=== PATIENT | female | born 1970 | race African-American/Black ===

== ENCOUNTER 2017-05-06 10:25 | Observation (INO) ==
[2017-05-06] MEDS ORDERED: METOPROLOL TARTRATE 5 MG/5 ML VIAL IV STA ×2 (11:42→15:44)
[2017-05-06] MEDS ORDERED: NITROGLYCERIN 2% OINT 1 INCH/GM PACK TOP STA (11:42)
[2017-05-06] MEDS ORDERED: MORPHINE 2 MG/1 ML SYRINGE IV PRN ×2 (11:42→17:37)
[2017-05-06] MEDS ORDERED: ASPIRIN 325 MG TABLET PO STA (11:42)
[2017-05-06] MEDS ORDERED: ALUM/MAG/SIMETH/LIDO VISC 1:1 30 ML BOTTLE PO STA (11:42)
--- NOTE | 2017-05-06 11:46 | EKG Report ---
Stationary ECG Study [facility] ER Test Date: 05/06/2017 10:36:41 AM Pat Name: SHARRI VALDERRAMA Department: Room: Gender: F Business System Consultant: : 1970 Requested by: Lokesh Wade Order Number: [id number] Reading MD: JAMMIE RAMIRES Intervals [place] Rate: 83 P: 62 [place]: 157 QRS: 60 QRSD: 95 T: 58 QT: 391 QTc: 430 Interpretive Statements SINUS RHYTHM Electronically Signed On 05-06-17 22:22:35 CDT by JAMMIE RAMIRES [email or web address]
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
[2017-05-06 12:23] LABS: Basophils % 0.5 % (0.0-0.8); Eosinophils # 0.3 10*3/uL (0.0-0.87); Eosinophils % 2.9 % (0.00-10.9); Hematocrit 40.1 VOL% (35.7-47.0); Hemoglobin 12.9 GM/DL (12.0-16.0); Immature Granulocytes % 0.6 %; Immature Granulocytes Absolute 0.05 #; Lymphocytes # 1.8 10*3/uL (1.4-4.0); Lymphocytes % 20.5 % (21.3-54.2); Mean Corpuscular HGB Conc 32.2 GM/DL (32-36); Mean Corpuscular Hemoglobin 28 PG (27-34); Mean Corpuscular Volume 85.5 FL (87-102); Mean Platelet Volume 10.4 FL (9.6-12.0); Monocytes # 0.6 10*3/uL (0.11-0.8); Neutrophils % 68.5 % (38.7-73.9); Platelet Count 421 T/CUMM (130-400); Red Blood Count 4.69 MC/CUMM (3.8-5.5); White Blood Count 8.8 T/CUMM (4-12)
[2017-05-06] MEDS ORDERED: ALUM/MAG/SIMETH/LIDO VISC 1:1 30 ML BOTTLE PO ONE (12:24)
[2017-05-06] MEDS ORDERED: NITROGLYCERIN 2% OINT 1 INCH/GM PACK TOP ONE (12:24)
[2017-05-06] MEDS ORDERED: ASPIRIN 325 MG TABLET ONE (12:24)
[2017-05-06] MEDS ORDERED: METOPROLOL TARTRATE 5 MG/5 ML VIAL IV ONE ×2 (12:24→16:27)
[2017-05-06 12:35] LABS: Partial Thromboplastin Time 28.6 SECS (0-40)
[2017-05-06 13:01] LABS: Albumin 3.3 G/DL (3.4-5.0); Bilirubin,Total 0.4 MG/DL (0.2-1.0); Calcium 8.8 MG/DL (8.5-10.1); Osmolality,Calculated 277.4 MOS/KG (273-304)
[2017-05-06] MEDS ORDERED: ONDANSETRON 4 MG/2 ML VIAL ONE ×2 (14:14→16:33)
--- NOTE | 2017-05-06 14:17 | XRay Report ---
History: Chest pain Date: 05/06/2017 Study: Chest x-ray PA lateral Comparison exam: February 23, 2017 chest x-ray There is continued mild cardiomegaly. The mediastinal contours are stable. Stent graft of the aortic arch and descending thoracic aorta is stable in appearance. The pulmonary vasculature is not engorged. There is no layering pleural effusion. The lungs and pleural spaces are generally clear aside from some minimal linear scar or subsegmental atelectasis in the left base. Osseous structures are unchanged. Impression: No definite acute process compared to the previous study PROCEDURE INTERPRETED AT [facility] DEPARTMENT OF RADIOLOGY Final Report Signed by: Dr. Marline Mattson
[2017-05-06] MEDS: ONDANSETRON 4 MG/2 ML VIAL IV PRN ×2 (14:18→16:40)
[2017-05-06 15:45] LABS: Apearance,Urine Slightly Hazy (Clear); Bilirubin,Urine Negative (Negative); Blood, Urine Negative (Negative); Glucose,Urine (UA) Negative (Negative); Ketones,Urine Negative (Negative); Mucus,Urine Occasional /LPF (Occasional); Nitrite,Urine Negative (Negative); Protein,Urine Negative; RBC,Urine 1 /HPF (0-4); Squamous Epithelial Cell,Urine Occasional /HPF (0-10); Urine Color Yellow (Yellow); Urine Specific Gravity 1.046 (1.001-1.035); Urine Urobilinogen < 2.0 EU/DL (0.2-1.0); WBC,Urine 2 /HPF (0-6)
[2017-05-06 15:57] LABS: Barbiturates Screen,Urine Negative (Negative); Benzodiazepines Screen,Urine Negative (Negative); Cannabinoid Screen,Urine Negative (Negative); Opiate Screen,Urine Negative (Negative); Phencyclidine Screen,Urine Negative (Negative)
--- NOTE | 2017-05-06 16:18 | CT Report ---
CT angio aorta complete Indication: Chest pain. History of prior thoracic endograft. CT ANGIOGRAM CHEST, ABDOMEN AND PELVIS DLP: 683 mGy*cm. One or more of the following dose reduction techniques was used: Automated exposure control, adjustment of the mA and/or kV according the patient size, or use of iterative reconstruction techniques. Technique: Axial CT images of the chest, abdomen and pelvis were obtained during the arterial and venous phases of contrast injection. 3-D vascular MIPS reconstructions and multiplanar reformats were evaluated. Omnipaque 350, 100 cc. Comparison: 04/30/2016 Arteriogram: Thoracic aortic stent graft device is in stable position. There is no evidence of endoleak within the excluded portion of the thoracic aneurysm. Ascending thoracic aortic diameter stable at 37 x 51 mm. No new thoracic aortic dissection shown. Left subclavian reposition on the left common carotid artery is again noted. Origin the right clavian artery remains dilated at 26 mm diameter, stable. Progressing inferiorly, dissection at the thoracoabdominal junction is again shown with continued thrombosis of the false lumen. In the abdomen, there is contrast enhancement of both the true and false lumen now present, both which appear to be patent along the entire length of the remaining aorta and into the bilateral iliac arteries. The celiac, superior mesenteric, and bilateral renal arteries are widely patent and originate off the true lumen, except for the left renal artery which appears to be a fenestration site of the true and false lumen. Regardless, no dissection is seen extending into the splanchnic vasculature. Maximum infrarenal abdominal aortic diameter is 38 x 38 mm, unchanged. The dissection extending to the right common iliac artery is unchanged with the right common iliac artery measuring 15 x 26 mm, stable. The left common iliac artery remains dilated as well at 19 mm, stable. Both external iliac arteries are widely patent. Chest: No mediastinal hematoma. Cardiomegaly again shown. Postoperative changes median sternotomy are present. No lymphadenopathy. Lungs are hypoinflated with elevation right hemidiaphragm and bibasilar atelectasis. They're otherwise clear. Pleural spaces are clear. No new bone lesions. Abdomen: Fatty infiltration of liver noted. Left parapelvic renal cysts are stable. Right kidney is unremarkable. Pancreas, spleen, and adrenal glands within normal limits. Cholecystectomy clips are present. No bowel obstruction. Pelvis: Urinary bladder, uterus and rectosigmoid colon not completely imaged. However, a 31 mm cystic structure associated with the left aspect of the bladder may represent a Hutch diverticulum. Impression: 1. Since one year ago, no significant change in appearance of the aorta. This includes fusiform aneurysmal dilatation of the ascending thoracic aorta, stable thoracic aortic stent graft, dissection of the abdominal aorta with fusiform dilatation, and dissection extending into the right common iliac artery and ostium of the left common iliac artery, both which are also dilated. No new dissection identified and no extension of dissection into the splanchnic vasculature. 2. Cardiomegaly. Pulmonary hypoinflation with atelectasis. 3. Fatty infiltration of liver. 4. 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 PROCEDURE INTERPRETED AT [facility] DEPARTMENT OF RADIOLOGY Final Report Signed by: Lan Leger M.D.
[2017-05-06] MEDS ORDERED: MORPHINE 2 MG/1 ML SYRINGE ONE (16:33)
--- NOTE | 2017-05-06 17:08 | Hospitalist History & Physical ---
Assessment and Plan - Time spent with patient Time spent with patient: Greater than 30 minutes (1) Chest pain Status: Acute Assessment and plan: Admit to Monitor Bed 05/06/17 Start IV fluids Monitor blood glucose: start sliding scale and diabetes coverage check A1c repeat serial troponin repeat EKG Consult Cardiology Current Visit: Yes History of Present Illness Chief complaint: chest pain (severe mid-epigastric) radiates to back History of present illness: Ms. Luciano is a 47 year old black female w/PMHx of hypertension, diabetes, AAA (w/repair x2), GERD, Glaucoma presented to the ED for further evaluation of chest pain mid-sternal/epigastric with associated lightheadness that has happened for a couple of days but became much worse this morning. She reports some shortness of breath with the pain and a tightness feeling in her chest and the pain radiates into her back. She denies fever, chills, nausea, numbness or tingling. IN ED: CT Angiography: please see report: No new dissection identified and no extension of dissection into the splanchnic vasculature. 2. Cardiomegaly. Pulmonary hypoinflation with atelectasis. 3. Fatty infiltration of liver. 4. 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 LABS significant: Electrolytes WNL; H&H stable; Plt 421, Creatinine 1.20; albumin 3.3. Urinalysis negative; Toxicology negative. Patient denies smoking, alcohol use, or drug use. She does not take Flu vaccine. 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 Home medications to be reviewed and reconciliation to follow. Home Medications Medication Instructions Recorded Confirmed Type Aspirin [Ecotrin] 1 tablet PO DAILY 07/11/15 04/30/16 History Brimonidine/Timolol Oph Soln 1 drop BOTH EYES BID 07/11/15 04/30/16 History [Combigan] Isosorbide Mononitrate [Ismo] 1 tablet PO BID 07/11/15 04/30/16 History Latanoprost [Latanoprost 0.005 % 1 drop BOTH EYES BID 07/11/15 04/30/16 History Oph Soln] Metoprolol Tartrate 1 tablet PO DAILY 07/11/15 04/30/16 History Potassium Chloride 1 tablet PO DAILY 07/11/15 04/30/16 History Gabapentin Cap/Tab [Neurontin 100 mg PO TID #90 capsule 08/30/15 04/30/16 Rx Cap/Tab] Sertraline [Zoloft] 50 mg PO BEDTIME #30 tablet 08/30/15 04/30/16 Rx Ketorolac Tab [Toradol Tab] 10 mg PO Q8H #14 tablet 11/15/15 04/30/16 Rx Methocarbamol Tab [Robaxin Tab] 750 mg PO QID PRN #20 tablet 04/30/16 Rx Pantoprazole Tab [Protonix Tab] 40 mg PO DAILY 04/30/16 04/30/16 History cloNIDine TAB [Catapres Tab] 0.1 mg PO BID 04/30/16 04/30/16 History Albuterol Inhaler [Proventil 2 puff INH Q4H PRN #1 inhaler 11/26/16 Rx Inhaler] HYDROcodone/CHLORPHEN ER SUSP 5 ml PO BID PRN #120 ml 11/26/16 Rx [Tussionex] Ondansetron [Ondansetron Odt] 8 mg PO Q4H PRN #10 tab.rapdis 11/26/16 Rx hydrALAZINE TAB [Apresoline Tab] 100 mg PO TID #90 tablet 02/23/17 Rx Allergies Allergy/AdvReac Type Severity Reaction Status Date / Time No Known Allergies Allergy Verified 11/15/15 18:38 Medical,Surgical,& Family Hx - Medical History Cardio: History of: Aneurysm (AAA x 2 repairs (1- 10years ago and 2-4 years ago) ), Hypertension, Cardiovascular Problems (AAA x2 repairs) HEENT: History of: Glaucoma Endocrine: History of: Diabetes Mellitus (NIDDM) No history of: Diabetes Mellitus (IDDM) Renal: No history of: Renal Problems Gastrointestinal: No history of: Gastrointestinal Bleed, Liver Problems, GI Problems Musculoskeletal: History of: Back/Neck Problems (back) - Surgical History Abdominal Surgeries: Surgical HX of: Abdominal Surgery (AAA repair), Cholecystectomy Reproductive Surgeries: Surgical HX of;: Tubal Ligation - Family History Family History: Reports;: Family Hypertension - Social History Smoking Status: Never smoker Frequency of Alcohol Use: None Type of Drug Use: None Marital Status: Single Lives With:: Alone Functional capacity: independent ambulation 12 point system: reviewed and no additional remarkable complaints except as stated - Constitutional Constitutional: Absent: chills, fever(s) - Cardiovascular Cardiovascular: Present: chest pain at rest, chest pain with activity, dyspnea on exertion (occasional), lightheadedness. Absent: edema - Gastrointestinal Gastrointestinal: Absent: abdominal pain, nausea, vomiting Exam - Constitutional Vitals: Period Temp Pulse Resp BP Sys/Ortiz Pulse Ox Last 24 Hr 99.1 F-99.1 F 63-98 18-20 149-202/74-113 95-100 General appearance: no acute distress, over weight - Head Head exam: Present: normal inspection - Eye Eye exam: Present: EOMI Pupils: Present: [place] - Neck Neck exam: Present: normal inspection. Absent: thyromegaly - Respiratory Respiratory exam: Present: clear to auscultation bilaterally. Absent: rhonchi, stridor, wheezes - Cardiovascular Cardiovascular exam: Present: regular rate and rhythm - GI/Abdominal GI/Abdominal exam: Present: normal bowel sounds, soft. Absent: tenderness, rebound - Extremities Exam Extremities exam: Present: normal inspection, full ROM. Absent: edema - Neurological Exam Neurological exam: Present: alert, oriented X3, CN II-XII intact - Psychiatric Psychiatric exam: Present: normal affect, normal mood. Absent: agitated, anxious - Skin Skin exam: Present: normal color, warm, dry Results - Labs CBC & BMP: 05/06/17 11:32 05/06/17 11:32 Lab Results: I have reviewed the past 24 hour labs - EKG EKG results: interpreted by ERMD - Diagnostic Findings Procedure: Chest x-ray: report reviewed by me (no acute process), CT - chest: report reviewed by me (no new dissection identified & no extension of dissection in to the splanchnic vasculature; cardiomegaly; pulmonary hypoinflation with atelectasis; fatty infiltration of liver, probable hutch diverticulum left bladder)
[2017-05-06] MEDS ORDERED: ACETAMINOPHEN 325 MG TABLET PO PRN (17:37)
[2017-05-06] MEDS ORDERED: ONDANSETRON 4 MG/2 ML VIAL IV PRN (17:37)
[2017-05-06] MEDS ORDERED: DEXTROSE 50% 25 GM/50 ML SYRINGE IV PRN (17:54)
[2017-05-06] MEDS ORDERED: GLUCAGON 1 MG VIAL IM PRN (17:54)
[2017-05-06] MEDS ORDERED: ENOXAPARIN 40 MG/0.4 ML SYRINGE SUBCUT SCH (21:00)
[2017-05-06] MEDS: INSULIN LISPRO 100 UNIT/ML SUBCUT SCH (21:02)
[2017-05-06] MEDS: SODIUM CHLORIDE 0.9% 1,000 ML IV SCH (23:52)
[2017-05-07 03:55] LABS: Basophils % 0.3 % (0.0-0.8); Eosinophils # 0.2 10*3/uL (0.0-0.87); Eosinophils % 2.7 % (0.00-10.9); Hematocrit 37.7 VOL% (35.7-47.0); Hemoglobin 11.9 GM/DL (12.0-16.0); Immature Granulocytes % 0.3 %; Immature Granulocytes Absolute 0.02 #; Lymphocytes # 2.1 10*3/uL (1.4-4.0); Lymphocytes % 27.3 % (21.3-54.2); Mean Corpuscular HGB Conc 31.6 GM/DL (32-36); Mean Corpuscular Hemoglobin 27 PG (27-34); Mean Corpuscular Volume 85.3 FL (87-102); Mean Platelet Volume 10.9 FL (9.6-12.0); Monocytes # 0.5 10*3/uL (0.11-0.8); Monocytes % 6.8 % (1.7-12.7); Neutrophils # 4.9 10*3/uL (1.4-7.4); Neutrophils % 62.6 % (38.7-73.9); Platelet Count 400 T/CUMM (130-400); Red Blood Count 4.42 MC/CUMM (3.8-5.5); Red Cell Distribution Width 15.1 % (9.3-17.3); White Blood Count 7.9 T/CUMM (4-12)
[2017-05-07 04:38] LABS: Calcium 8.3 MG/DL (8.5-10.1); Magnesium 2.2 MG/DL (1.8-2.4); Osmolality,Calculated 278.4 MOS/KG (273-304); Risk Ratio 4.59; VLDL CHOLESTEROL 22.8 MG/DL
--- NOTE | 2017-05-07 08:10 | EKG Report ---
Stationary ECG Study [facility] ER Test Date: 05/06/2017 3:55:44 PM Pat Name: SHARRI VALDERRAMA Department: Room: 266 Gender: F Hvac Mechanical Engineer: : 1970 Requested by: Lokesh Wade Order Number: [id number] Slime MD: DEBI BOJORQUEZ Intervals [place] Rate: 70 P: 64 NV: 164 QRS: 74 QRSD: 92 T: 60 QT: 417 QTc: 437 Interpretive Statements SINUS RHYTHM Electronically Signed On 05-07-17 20:56:15 CDT by DEBI BOJORQUEZ [email or web address]
[2017-05-07] MEDS: INSULIN LISPRO 100 UNIT/ML SUBCUT SCH ×3 (08:19→17:36)
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
[2017-05-07] MEDS ORDERED: PANTOPRAZOLE 40 MG TABLET PO SCH (09:00)
[2017-05-07] MEDS: SODIUM CHLORIDE 0.9% 1,000 ML IV SCH (09:10)
--- NOTE | 2017-05-07 09:22 | EKG Report ---
Stationary ECG Study [facility] Test Date: 05/07/2017 9:19:17 AM Pat Name: SHARRI VALDERRAMA Department: Room: 266 Gender: F [employer]: : 1970 Requested by: Rhiannon Almonte Order Number: [id number] Reading MD: JAMMIE RAMIRES Intervals [place]son Rate: 66 P: 59 WY: 170 QRS: 70 QRSD: 94 T: 71 QT: 438 QTc: 452 Interpretive Statements SINUS RHYTHM Electronically Signed On 05-07-17 21:16:48 CDT by JAMMIE RAMIRES [email or web address]
[2017-05-07] MEDS ORDERED: LISINOPRIL 10 MG TABLET PO SCH (10:00)
--- NOTE | 2017-05-07 11:00 | Event Note ---
Patient underwent cardiac stress test this morning. She achieved target heart rate without difficulty [place] protocol. She tolerated this well without complaints of chest pain, heaviness or tightness. Heart rate and blood pressure responded appropriately to exercise. No arrhythmias. She did have ST depression in inferior leads (2, 3 and aVF). No associated shortness of breath , lightheadedness or nausea. There exercise tolerance. Reached 6.6 mets. Patient now onto final nuclear scan. Dr. Sofia to read, interpret and advise.
[2017-05-07] MEDS ORDERED: METHOCARBAMOL 750 MG TABLET PO PRN (13:29)
[2017-05-07] MEDS ORDERED: GABAPENTIN 100 MG CAPSULE PO SCH (15:00)
[2017-05-07 15:52] VITALS: BP 143/71
--- NOTE | 2017-05-07 16:02 | Nuclear Medicine Report ---
EXERCISE STRESS TEST Test is interpreted and dictated by Dr. Aung Sofia. INDICATION: Chest pain. PROCEDURE: At rest, 10 mCi of 99-Technetium labeled Sestamibi was injected and the rest images were obtained. The patient then exercised according to the [place] treadmill stress protocol. At peak stre ss, 30 mCi of 99-Technetium labeled Sestamibi was injected and post-stress images were obtained. FINDINGS: At rest, sinus rhythm, 69 beats per minute, blood pressure 142/80 mmHg. No chest pain or EKG changes suggestive of ischemia at rest. The patient exercised for 4 minutes and 49 seconds, achi eving a peak of 6.3 METs, sinus tachycardia, 164 beats per minute, 93% of maximum, age predicted hear t rate. The blood pressure amilcar to 146/82 mmHg. At peak stress, there was 1 mm ascending inferior S T depression. There was no chest pain. Rest and post exercise, rest images were reviewed, gated and perfusion. The left ventricle is normal in size, end-diastolic volume is 84 cc, end-systolic volume is 30 cc, calculated left ventricular ejection fraction is 64%. There are no significant motion art ifacts. At rest, there is a small area of moderately diffuse activity in the anteroseptal/apical reg ion, which improved mild photopenia post stress. There are no corresponding wall motion abnormalitie s. Findings are suggestive of imaging artifact. CONCLUSION: 1. CLINICALLY AND ELECTRICALLY NEGATIVE SUBMAXIMAL EXERCISE STRESS TEST. FAIR EXERCISE TOLERANCE. 2. NORMAL LEFT VENTRICULE SIZE, NORMAL SYSTOLIC FUNCTION, NO EVIDENCE OF MYOCARDIAL ISCHEMIA OR OLD MYOCARDIAL DISEASE. 3. THIS IS A LOW RISK TEST. Procedure performed and interpreted at [facility] Department of Radiology.
--- NOTE | 2017-05-07 16:29 | Discharge Summary ---
<Isabelle Kc - Last Filed: 05/07/17 16:21> Hospital Course - Hospital Course Hospital Course: Ms. Luciano is a 47-year-old black female with a history of GERD, hypertension, AAA, diabetes, and glaucoma that presented to the ED on 05/06 for further evaluation of chest pain. Patient reported midsternal/epigastric chest pain and associated lightheadedness with onset of a couple days prior to presentation. There was also some tightness accompanying the pain and there was radiation into the back. Patient stated that the pain progressively worsened right before she reported to the ED. Pt. also stated that she felt short of breath. Of note, pt had an AAA which was operated on twice (2006 and 2010). In ED, CXR was performed and was negative. Initial troponins were negative but pt was admitted for observation. Cardiology was consulted to evaluate. Serial ekgs and cardiac enzymes were obtained. All negative. Pt. underwent a stress test today. She achieved a target heart rate without difficulty. Chest pain is consistent with GERD. She is already prescribed protonix, which she has not started taking yet due to difficulty getting her prescription filled. Social work discussed this with her. Labs and vital signs remain stable. Pt. is medically stable to be discharged home. Discharge Plan - Discharge Data Disposition: Disch To Home/Self Care - Discharge Medications New Atorvastatin [Lipitor] 20 mg PO BEDTIME #30 tablet Lisinopril [Prinivil] 10 mg PO DAILY #30 tablet Pantoprazole Tab [Protonix Tab] 40 mg PO DAILY #30 tablet Continue Brimonidine/Timolol Oph Soln [Combigan] 1 drop BOTH EYES BID Aspirin [Ecotrin] 1 tablet PO QAM Potassium Chloride 10 meq PO DAILY Metoprolol Tartrate 100 mg PO QAM Isosorbide Mononitrate [Ismo] 20 mg PO BID Latanoprost [Latanoprost 0.005 % Oph Soln] 1 drop BOTH EYES BID Gabapentin Cap/Tab [Neurontin Cap/Tab] 100 mg PO TID #90 capsule cloNIDine TAB [Catapres Tab] 0.1 mg PO BID Methocarbamol Tab [Robaxin Tab] 750 mg PO QID PRN #20 tablet PRN Reason: Muscle Pain Hydrocodone/Acetaminophen [[place] 10-325 Tablet] 1 each PO Q4HR PRN PRN Reason: Pain Moderate To Severe (4-10) Discontinued hydrALAZINE TAB [Apresoline Tab] 100 mg PO TID #90 tablet - Follow Up or Referral - Forms/Instructions Exam - Constitutional Vitals: Period Temp Pulse Resp BP Sys/Ortiz Pulse Ox Last 24 Hr 96.3 F-99.4 F 64-83 16-20 134-197/58-95 96-100 Discharge Results Labs on day of discharge: Labs from last 24 hours 05/07/17 05/07/17 05/07/17 15:25 11:52 07:58 WBC RBC Hgb Hct MCV MCH MCHC RDW Plt Count MPV Neut % (Auto) Lymph % (Auto) [place] % (Auto) Eos % (Auto) Baso % (Auto) Neut # (Auto) Lymph # (Auto) [place] # (Auto) Eos # (Auto) Baso # (Auto) Immature Gran % Nucleated RBC % Immature Gran # Nucleated RBCs # Immature Plt Fraction Sodium Potassium Chloride Carbon Dioxide Anion Gap BUN Creatinine GFR Calculation BUN/Creatinine Ratio Glucose POC Glucose 114 H 136 H 122 H Hemoglobin A1c Calculated Osmolality Calcium Magnesium Troponin I B-Natriuretic Peptide Triglycerides Cholesterol LDL Cholesterol VLDL Cholesterol HDL Cholesterol Heart Disease Risk Ratio 05/07/17 05/07/17 05/07/17 02:34 02:34 02:34 WBC RBC Hgb Hct MCV MCH MCHC RDW Plt Count MPV Neut % (Auto) Lymph % (Auto) [place] % (Auto) Eos % (Auto) Baso % (Auto) Neut # (Auto) Lymph # (Auto) [place] # (Auto) Eos # (Auto) Baso # (Auto) Immature Gran % Nucleated RBC % Immature Gran # Nucleated RBCs # Immature Plt Fraction Sodium 140 Potassium 4.0 Chloride 106 Carbon Dioxide 28 Anion Gap 10.0 BUN 12 Creatinine 1.00 GFR Calculation 101 BUN/Creatinine Ratio 12.00 Glucose 97 POC Glucose Hemoglobin A1c 7.0 H Calculated Osmolality 278.4 Calcium 8.3 L Magnesium 2.2 Troponin I B-Natriuretic Peptide 71 Triglycerides 114 Cholesterol 133 LDL Cholesterol 87.0 VLDL Cholesterol 22.8 HDL Cholesterol 29 L Heart Disease Risk Ratio 4.59 05/07/17 05/06/17 05/06/17 02:34 22:28 19:35 WBC 7.9 RBC 4.42 Hgb 11.9 L Hct 37.7 MCV 85.3 L MCH 27 MCHC 31.6 L RDW 15.1 Plt Count 400 MPV 10.9 Neut % (Auto) 62.6 Lymph % (Auto) 27.3 [place] % (Auto) 6.8 Eos % (Auto) 2.7 Baso % (Auto) 0.3 Neut # (Auto) 4.9 Lymph # (Auto) 2.1 [place] # (Auto) 0.5 Eos # (Auto) 0.2 Baso # (Auto) 0.0 Immature Gran % 0.3 Nucleated RBC % 0.0 Immature Gran # 0.02 Nucleated RBCs # 0.00 Immature Plt Fraction 0.0 Sodium Potassium Chloride Carbon Dioxide Anion Gap BUN Creatinine GFR Calculation BUN/Creatinine Ratio Glucose POC Glucose Hemoglobin A1c Calculated Osmolality Calcium Magnesium Troponin I < 0.015 < 0.015 B-Natriuretic Peptide Triglycerides Cholesterol LDL Cholesterol VLDL Cholesterol HDL Cholesterol Heart Disease Risk Ratio 05/06/17 05/06/17 18:55 16:21 WBC RBC Hgb Hct MCV MCH MCHC RDW Plt Count MPV Neut % (Auto) Lymph % (Auto) [place] % (Auto) Eos % (Auto) Baso % (Auto) Neut # (Auto) Lymph # (Auto) [place] # (Auto) Eos # (Auto) Baso # (Auto) Immature Gran % Nucleated RBC % Immature Gran # Nucleated RBCs # Immature Plt Fraction Sodium Potassium Chloride Carbon Dioxide Anion Gap BUN Creatinine GFR Calculation BUN/Creatinine Ratio Glucose POC Glucose 130 H Hemoglobin A1c Calculated Osmolality Calcium Magnesium Troponin I < 0.015 B-Natriuretic Peptide Triglycerides Cholesterol LDL Cholesterol VLDL Cholesterol HDL Cholesterol Heart Disease Risk Ratio DS: Provider Date of admission: 05/06/17 17:32 Primary care physician: . No PCP Attending physician on admission: Lan Jacques MD Consults: 05/06/17 17:56 Consult to Physician [CONS] Routine Comment: Consulting Provider: Aung Hill When should Consulting Provider be notified: Now Person Notified: dr hill Date Notified: 05/06/17 Time Notified: 19:19 Consult Notification Comment: Patient of Dr Grover admit for chest pain Hx: of AAA repair -2 different surgeries, HTN , DM, obese Spoke with Dat of consult at 0755 Discharging clinician: Isabelle Kc NP <Gautam Waller - Last Filed: 05/07/17 16:43> Hospital Course - Time spent with patient Time with patient DS: Greater than 30 minutes (35) Diagnosis - Discharge Diagnosis (1) Atypical chest pain Status: Resolved (2) Obesity Status: Chronic (3) GERD (gastroesophageal reflux disease) Status: Chronic Discharge Plan - Discharge Data Condition at Discharge: Stable Discharge Diet: low fat, low cholesterol Activity: increase activity as tolerated Hygiene: no restrictions Weight Bearing at Discharge: weight bear as tolerated Driving: no restrictions Contact your physician if you experience:: pain uncontrolled by pain medications Exam - Constitutional General appearance: over weight - Head Head exam: Present: normocephalic, atraumatic - Eye Eye exam: Present: EOMI Pupils: Present: [place] - ENT ENT exam: Present: normal exam - Neck Neck exam: Present: normal inspection - Respiratory Respiratory exam: Present: clear to auscultation bilaterally. Absent: rhonchi, wheezes - Cardiovascular Cardiovascular exam: Present: regular rate and rhythm - GI/Abdominal GI/Abdominal exam: Present: normal bowel sounds, soft. Absent: tenderness, rebound - Extremities Exam Extremities exam: Present: normal inspection - Back Exam Back exam: Present: normal inspection - Neurological Exam Neurological exam: Present: alert, oriented X3 - Psychiatric Psychiatric exam: Present: normal affect, normal mood - Skin Skin exam: Present: warm, intact
[2017-05-07] MEDS ORDERED: ATORVASTATIN 20 MG TABLET PO SCH (21:00)
[2017-05-07] MEDS ORDERED: cloNIDine 0.1 MG TABLET PO SCH (21:00)
[2017-05-07] MEDS ORDERED: ISOSORBIDE MONONITRATE 20 MG TABLET PO SCH (21:00)
[2017-05-07] MEDS ORDERED: BRIMONIDINE/TIMOLOL OPH SOLN 5 ML BOTTLE BOTH EYES SCH (21:00)
[2017-05-07] MEDS ORDERED: LATANOPROST 0.005% OPH SOLN 2.5 ML BOTTLE BOTH EYES SCH (21:00)
[2017-05-08] MEDS ORDERED: ASPIRIN EC 81 MG TABLET PO SCH (09:00)
[2017-05-08] MEDS ORDERED: POTASSIUM CHLORIDE 10 MEQ TABLET PO SCH (09:00)
[2017-05-08] MEDS ORDERED: METOPROLOL SUCCINATE XL 100 MG TABLET PO SCH (09:00)
[2017-05-08] MEDS ORDERED: METOPROLOL TARTRATE 100 MG TABLET PO SCH (09:00)
== END 2017-05-07 18:03 | disposition home or self-care (01) ==
LOC: N.ED 10:25 → N.EDINP 17:32 → SUATTDRO 17:32 → INTOOBSV 17:32 → N.EDINP 18:33 → N.TELES 18:39
PROVIDERS: ADMIT Internal Medicine; ATTEND Internal Medicine

== ENCOUNTER 2019-10-30 18:54 | Inpatient (IN) ==
[2019-10-30 19:42] LABS: Basophils % 0.4 % (0.0-0.8); Eosinophils # 0.3 10*3/uL (0.0-0.87); Eosinophils % 2.9 % (0.00-10.9); Hemoglobin 13.2 GM/DL (12.0-16.0); Immature Granulocytes % 0.4 %; Immature Granulocytes Absolute 0.04 #; Lymphocytes # 2.3 10*3/uL (1.4-4.0); Lymphocytes % 23.6 % (21.3-54.2); Mean Corpuscular HGB Conc 30.7 GM/DL (32-36); Mean Platelet Volume 11.1 FL (9.6-12.0); Monocytes % 6.4 % (1.7-12.7); Neutrophils % 66.3 % (38.7-73.9); Platelet Count 394 T/CUMM (130-400); Red Cell Distribution Width 16.3 % (9.3-17.3); White Blood Count 9.7 T/CUMM (4-12)
[2019-10-30] MEDS ORDERED: hydrALAZINE 20 MG/1 ML VIAL IV STA (19:44)
[2019-10-30 19:47] LABS: Albumin 3.8 G/DL (3.4-5.0); Bilirubin,Total 0.4 MG/DL (0.2-1.0); Calcium 9.6 MG/DL (8.5-10.1); Osmolality,Calculated 274.8 MOS/KG (273-304); Total Protein 8.3 G/DL (6.4-8.3)
[2019-10-30] MEDS ORDERED: niCARdipine 25 MG/10 ML VIAL IV ONE (20:21)
[2019-10-30] MEDS ORDERED: NICOTINE 21 MG/24 HR PATCH TRANSDERM PRN (20:26)
[2019-10-30] MEDS ORDERED: diphenhydrAMINE CAP 25 MG CAPSULE PO PRN (20:26)
[2019-10-30] MEDS ORDERED: hydrALAZINE 20 MG/1 ML VIAL IV PRN (20:26)
[2019-10-30] MEDS ORDERED: PROMETHAZINE 25 MG/1 ML VIAL IM PRN (20:26)
[2019-10-30] MEDS ORDERED: ZALEPLON 5 MG CAPSULE PO PRN (20:26)
[2019-10-30] MEDS ORDERED: MORPHINE 4 MG/1 ML VIAL IV PRN (20:26)
[2019-10-30] MEDS ORDERED: guaiFENesin/DM ER 600-30 MG TABLET PO PRN (20:26)
[2019-10-30] MEDS ORDERED: ONDANSETRON 4 MG/2 ML VIAL IV PRN (20:26)
[2019-10-30] MEDS ORDERED: ALBUTEROL 2.5 MG/3 ML NEB RESP TX PRN (20:26)
[2019-10-30] MEDS ORDERED: ONDANSETRON 4 MG/2 ML VIAL IV ONE (20:31)
[2019-10-30] MEDS ORDERED: niCARdipine INJ 25 MG in SODIUM CHLORIDE 0.9% 240 ML IV PRN (20:32)
[2019-10-30] MEDS: niCARdipine INJ 25 MG in SODIUM CHLORIDE 0.9% 240 ML IV PRN (20:34)
[2019-10-30] MEDS ORDERED: GLUCAGON 1 MG VIAL IM PRN (20:38)
[2019-10-30] MEDS: INSULIN LISPRO 100 UNIT/ML SUBCUT SCH (21:00)
[2019-10-30] MEDS ORDERED: DEXTROSE 10% 250 ML BAG IV PRN (22:41)
[2019-10-30] MEDS: DOCUSATE SODIUM 100 MG CAPSULE PO SCH (23:13)
[2019-10-30] MEDS: ENOXAPARIN 40 MG/0.4 ML SYRINGE SUBCUT SCH (23:14)
[2019-10-30] MEDS: ISOSORBIDE MONONITRATE 20 MG TABLET PO SCH (23:14)
[2019-10-31] MEDS ORDERED: POTASSIUM CHLORIDE 20 MEQ TABLET PO ONE (07:53)
[2019-10-31] MEDS: INSULIN LISPRO 100 UNIT/ML SUBCUT SCH ×4 (08:46→22:03)
[2019-10-31] MEDS: hydroCHLOROthiazide 12.5 MG CAPSULE PO SCH (08:49)
[2019-10-31] MEDS: lisinopriL 20 MG TABLET PO SCH (08:50)
[2019-10-31] MEDS: ISOSORBIDE MONONITRATE 20 MG TABLET PO SCH ×2 (08:50→21:59)
[2019-10-31] MEDS: PANTOPRAZOLE 40 MG TABLET PO SCH (08:51)
[2019-10-31] MEDS: DOCUSATE SODIUM 100 MG CAPSULE PO SCH ×2 (08:51→21:58)
[2019-10-31] MEDS: amLODIPine 5 MG TABLET PO SCH (08:51)
[2019-10-31] MEDS: METOPROLOL TARTRATE 100 MG TABLET PO SCH (08:51)
[2019-10-31] MEDS ORDERED: lisinopriL 20 MG TABLET PO SCH (09:00)
[2019-10-31] MEDS: niCARdipine INJ 25 MG in SODIUM CHLORIDE 0.9% 240 ML IV PRN (09:50)
[2019-10-31] MEDS: ACETAMINOPHEN 325 MG TABLET PO PRN ×2 (12:26→22:00)
[2019-10-31] MEDS: METOCLOPRAMIDE 5 MG TABLET PO SCH ×2 (17:02→21:58)
[2019-10-31] MEDS: FAMOTIDINE 20 MG TABLET PO SCH (22:00)
[2019-10-31] MEDS: ENOXAPARIN 40 MG/0.4 ML SYRINGE SUBCUT SCH (22:02)
[2019-11-01 05:56] LABS: Calcium 9.3 MG/DL (8.5-10.1); Osmolality,Calculated 279.8 MOS/KG (273-304)
[2019-11-01] MEDS: DOCUSATE SODIUM 100 MG CAPSULE PO SCH ×2 (08:20→21:28)
[2019-11-01] MEDS: METOPROLOL TARTRATE 100 MG TABLET PO SCH (08:20)
[2019-11-01] MEDS: hydroCHLOROthiazide 12.5 MG CAPSULE PO SCH (08:20)
[2019-11-01] MEDS: INSULIN LISPRO 100 UNIT/ML SUBCUT SCH ×4 (08:20→21:40)
[2019-11-01] MEDS: METOCLOPRAMIDE 5 MG TABLET PO SCH ×4 (08:20→21:27)
[2019-11-01] MEDS: amLODIPine 5 MG TABLET PO SCH (08:21)
[2019-11-01] MEDS: ISOSORBIDE MONONITRATE 20 MG TABLET PO SCH ×2 (08:21→21:27)
[2019-11-01] MEDS: FAMOTIDINE 20 MG TABLET PO SCH ×2 (08:21→21:28)
[2019-11-01] MEDS: PANTOPRAZOLE 40 MG TABLET PO SCH (08:21)
[2019-11-01] MEDS: lisinopriL 20 MG TABLET PO SCH (08:21)
[2019-11-01] MEDS: METOPROLOL TARTRATE 50 MG TABLET PO SCH (21:27)
[2019-11-01] MEDS: ENOXAPARIN 40 MG/0.4 ML SYRINGE SUBCUT SCH (23:26)
[2019-11-02] MEDS ORDERED: amLODIPine 10 MG TABLET PO SCH (09:00)
[2019-11-02] MEDS: METOCLOPRAMIDE 5 MG TABLET PO SCH ×2 (09:02→12:55)
[2019-11-02] MEDS: ISOSORBIDE MONONITRATE 20 MG TABLET PO SCH (09:02)
[2019-11-02] MEDS: lisinopriL 20 MG TABLET PO SCH (09:02)
[2019-11-02] MEDS: hydroCHLOROthiazide 12.5 MG CAPSULE PO SCH (09:02)
[2019-11-02] MEDS: PANTOPRAZOLE 40 MG TABLET PO SCH (09:02)
[2019-11-02] MEDS: METOPROLOL TARTRATE 50 MG TABLET PO SCH (09:03)
[2019-11-02] MEDS: FAMOTIDINE 20 MG TABLET PO SCH (09:03)
[2019-11-02] MEDS: INSULIN LISPRO 100 UNIT/ML SUBCUT SCH ×2 (09:03→12:32)
[2019-11-02] MEDS: DOCUSATE SODIUM 100 MG CAPSULE PO SCH (09:03)
[2019-11-02 12:53] VITALS: BP 154/88
== END 2019-11-02 15:55 | disposition home or self-care (01) | DRG 305 ==
LOC: N.ED 18:54 → N.EDINP 20:26 → SUATTDRO 20:26 → N.CC 20:50 → N.TELEN 11-01 14:06
PROVIDERS: ADMIT Family Medicine; ATTEND Emergency Medicine